=== PATIENT | female | born 1975 | race Caucasian/White ===

== ENCOUNTER 2024-07-23 15:59 | Outpatient (RCR) | payer BC, SELFPAY | END 2024-09-08 13:18 | disposition home or self-care (01) | LOC: HO.PT 15:59 | PROVIDERS: PCP Family Medicine; Visit Provider Pediatrics | DX: S39.012A Strain of muscle, fascia and tendon of lower back, initial encounter (principal) | CPT/HCPCS: 97110; 97112; 97161 ==